=== PATIENT | female | born 1970 | race Caucasian/White ===

== ENCOUNTER → 2019-11-06 09:24 | Outpatient (BNVA) | payer OTHER, SELFPAY | PROVIDERS: Visit Provider Specialist | DX: M25.521 Pain in right elbow (principal) | CPT/HCPCS: 73080 ==

== ENCOUNTER → 2020-05-27 15:30 | Outpatient (BNVA) | payer OTHER, SELFPAY | PROVIDERS: Visit Provider Nurse Practitioner Women's Health | DX: Z01.419 Encounter for gynecological examination (general) (routine) without abnormal findings; N95.1 Menopausal and female climacteric states; Z13.0 Encounter for screening for diseases of the blood and blood-forming organs and certain disorders involving the immune mechanism; Z13.228 Encounter for screening for other metabolic disorders; Z13.1 Encounter for screening for diabetes mellitus; Z13.220 Encounter for screening for lipoid disorders | CPT/HCPCS: 88175 ==

== ENCOUNTER → 2020-06-01 09:54 | Outpatient (BNVA) | payer OTHER, SELFPAY | PROVIDERS: Visit Provider Registered Nurse | DX: N95.1 Menopausal and female climacteric states (principal); Z13.0 Encounter for screening for diseases of the blood and blood-forming organs and certain disorders involving the immune mechanism; Z13.1 Encounter for screening for diabetes mellitus; Z13.220 Encounter for screening for lipoid disorders; Z13.228 Encounter for screening for other metabolic disorders | CPT/HCPCS: 80053; 80061; 83001; 83036; 84450; 85025 ==

== ENCOUNTER → 2021-08-02 10:49 | Outpatient (BNVA) | payer OTHER, SELFPAY | PROVIDERS: Visit Provider Internal Medicine | DX: Z01.812 Encounter for preprocedural laboratory examination (principal); Z20.822 Contact with and (suspected) exposure to COVID-19 | CPT/HCPCS: 87635 ==

== ENCOUNTER 2021-08-08 07:32 | Day surgery (SDC) | payer OTHER, SELFPAY ==
[2021-08-04 15:08] VITALS: BMI 32.8
--- NOTE | 2021-08-08 07:46 | ANES.PREANE2 ---
Pre-Anesthetic Assessment Pre-Anesthetic Assessment: Height/Weight: Height 1.7 m Weight 95.254 kg Preop Diagnosis: screening Proposed Procedure: Operation Date: 08/08/21 08:45 Proposed Procedures p Colonoscopy 06344 Z12.11(Not Applicable) - Oj Griffin MD Familial anesthetic complications: none Was Beta Daniela taken within 24 hours: N/A Was Clonidine taken within 24 hours: N/A Last intake: > 8 hrs Social: Social History: No alcohol and No tobacco Exam: Pre-Anes Outpt Exam: alert, oriented x 3, clear to auscultation bilaterally and regular rate & rhythm Airway: Cervical ROM: WNL MP: 2 Dentition: Full GI: Comments: hx of ulcer Anesthetic Plan: ASA status: 1 Anesthesia: MAC Risk of > 500 ml blood loss (7ml/kg in children): No PFSH Anesthesia PFSH: Medical History History of gastric ulcer No pertinent past medical history neghx: htn,dm,thyroid,dvt/pe Surgical History H/O prior ablation treatment (~2006) treat her heavy periods H/O unilateral oophorectomy (~1989) left-- from ruptured cyst History of appendectomy (1989) History of cholecystectomy (~2000) History of tonsillectomy and adenoidectomy History of tubal ligation (~2006) Family History Mother Breast cancer dx'd around 50. Family history of thyroid problem Hypertension Hyperlipidemia Father Heart disease Hypertension Hyperlipidemia Grandmother Breast cancer Maternal grandmother--dx age 88 Grandfather Stroke Maternal grandfather Denies family history of Colon cancer Ovarian cancer Diabetes Uterine cancer Social History Smoking and tobacco status: never smoked Data Anesthesia Cardiac Studies: No Data to Display
--- NOTE | 2021-08-08 07:47 | P.HP_ITS ---
Same Day Surgery H&P Indication for Procedure/HPI DATE OF PROCEDURE: August 08, 2021 CHIEF COMPLAINT/INDICATIONFOR SURGICAL PROCEDURE: Screening PREOP DIAGNOSIS: scr PLANNED PROCEDRUE: Operation Date: 08/08/21 08:45 Proposed Procedures p Colonoscopy 78845 Z12.11(Not Applicable) - Oj Griffin MD Medications/Allergies* Allergies/Adverse Reactions Allergy/AdvReac Type Severity Reaction Status Date / Time Penicillins Allergy hives Verified 07/26/21 10:36 Pertinent History/Comorbid Conditions* Medical History (Updated 07/26/21 @ 10:56 by Oj Griffin MD) History of gastric ulcer No pertinent past medical history neghx: htn,dm,thyroid,dvt/pe Surgical History (Updated 06/04/20 @ 08:56 by Milena Holliday APN, JOSUÉ) H/O prior ablation treatment (~2006) treat her heavy periods H/O unilateral oophorectomy (~1989) left-- from ruptured cyst History of appendectomy (1989) History of cholecystectomy (~2000) History of tonsillectomy and adenoidectomy History of tubal ligation (~2006) Family History (Updated 05/31/21 @ 13:14 by Ivy Scales) Heart disease Father Hyperlipidemia Mother Father Breast cancer Mother dx'd around 50. Grandmother Maternal grandmother--dx age 88 Family history of thyroid problem Mother Hypertension Mother Father Stroke Grandfather Maternal grandfather Denies family history of Colon cancer Ovarian cancer Diabetes Uterine cancer Social History Smoking and tobacco status: never smoked Pertinent Exam Findings alert, oriented x 3, clear to auscultation bilaterally, regular rate & rhythm, operative site marked and procedure specific exam findings Recommendations Surgery/Procedure today Coding Level of Care Code Acute Bindery Machine Operator for Cherelle Hauser
[2021-08-08 08:20] VITALS: BP 120/78; PULSE 86; RESP 16; TEMP 36.1; O2SAT 97
[2021-08-08] MEDS: sodium chloride 0.9% 1,000 ML 30 ML IV (08:37)
[2021-08-08 09:46] VITALS: BP 156/96; PULSE 79; RESP 16; TEMP 36.6; O2SAT 96
[2021-08-08 10:00] VITALS: BP 133/87; PULSE 79; RESP 16; O2SAT 95
--- NOTE | 2021-08-08 13:44 | ANE.PACU2 ---
Inpatient post-anesthesia follow up: Airway intact: Yes Vital signs: Temperature 97.9 F Pulse Rate 79 Respiratory Rate 16 Blood Pressure 133/87 Pulse Oximetry 95 Oxygen Delivery Me thod Room Air Oxygen Flow Rate Fraction of Inspir ed Oxygen Hydration adequate: Yes Nausea and vomiting: No Pain level: 1 Mental status: Baseline
== END 2021-08-08 10:17 | disposition home or self-care (01) ==
PROVIDERS: Visit Provider Internal Medicine
PROC: 0DJD8ZZ Inspection of Lower Intestinal Tract, Via Natural or Artificial Opening Endoscopic (ICD-10-PCS; CPT 45378; principal; 2021-08-08 08:45)
DX: Z12.11 Encounter for screening for malignant neoplasm of colon (principal); Z87.11 Personal history of peptic ulcer disease
CPT/HCPCS: 45378; 96360; J2704; J7030

== ENCOUNTER → 2022-08-09 13:54 | Outpatient (BNVA) | payer OTHER, SELFPAY | PROVIDERS: Visit Provider Podiatrist Foot & Ankle Surgery | DX: M72.2 Plantar fascial fibromatosis (principal) | CPT/HCPCS: 73630 ==

== ENCOUNTER 2022-11-10 15:52 | Emergency (ER) | payer OTHER, SELFPAY ==
[2022-11-10 15:54] VITALS: BP 147/78; PULSE 97; RESP 16; TEMP 36.6; O2SAT 98
[2022-11-10 15:59] VITALS: PULSE 80; RESP 16; O2SAT 91
--- NOTE | 2022-11-10 16:15 | CTR_ITS ---
PROCEDURE INFORMATION: Exam: CT Lumbar Spine Without Contrast Exam date and time: 11/10/2022 5:11 PM Age: 52 years old Clinical indication: Low back pain; Additional info: Severe low back pain, L leg numbness. Lifting injury per PT. TECHNIQUE: Imaging protocol: Computed tomography of the lumbar spine without contrast. Radiation optimization: All CT scans at this facility use at least one of these dose optimization techniques: automated exposure control; mA and/or kV adjustment per patient size (includes targeted exams where dose is matched to clinical indication); or iterative reconstruction. Other protocol: This patient has received 0 known CTs and 0 known cardiac nuclear medicine studies in the 12 months prior to the current study. COMPARISON: CT kidney stone [id number] 10/05/2021 8:25 AM RADIATION DOSE METRICS: Total DLP (mGy-cm): 1305.6 FINDINGS: Bones/joints: Minimal anterolisthesis is present L3 on L4 measuring 4 mm. The alignment is otherwise near anatomic. The vertebral body heights are maintained. There are mild multilevel degenerative changes present. L3-L4 and L4-L5 diffuse disc bulging and facet arthritis causes mild spinal canal narrowing. Left paracentral focal disc protrusion at L5-S1 abuts the descending S1 nerve root. Soft tissues: Tarlov cyst in the sacrum. CT/CT lumbar spine wo con* [id number] IMPRESSION: 1. No acute findings. 2. Degenerative disc disease with mild spinal canal stenosis L3-L5. There is also disc material abutting the left descending S1 nerve root. This can be further evaluated with MRI for follow-up.
--- NOTE | 2022-11-10 16:16 | ED_ITS ---
Documented by User: KRITSEN Huff 11/10/22 16:31 HPI - Back Pain/Injury General: Chief Complaint: Back Pain/Injury Stated Complaint: back pain Time Seen by Provider: 11/10/22 16:04 Source: patient and family Mode of arrival: wheelchair Limitations: no limitations History of Present Illness: Patient is a nice 52-year-old female presents to ED today along with her presumed for complaints of severe lower back pain. Patient tells me mother was recently placed on hospice and they recently moved her to town to help care for her. Patient states she was often solo/un- assisted in transferring/lifting patient and began feeling like her back was spasming. She states yesterday she went outside on her deck and bent over to hand picker a piece of mail. She states shortly after this she began having severe lower back pain. She reports since onset she has now began experiencing pain into her left buttock and down her entire left leg. She states when she ambulates her left leg will give out causing her to fall. She denies saddle anesthesia. She is not having any bowel/bladder dysfunction. No known previous back injuries. Of note patient reports a previous history of a gastric ulcer and cannot take NSAIDs. She had been taking some leftover Hydrocodone and Flexeril at home without any relief in her discomfort. She had also been trying heating pad without relief. MD elicited complaint: back pain Onset (ago): day(s) Timing: constant Severity: severe Pain scale (0-10): 10 Similar Symptoms Previously: No Quality: sharp and spasming Location: lumbar spine and left lower back Radiation: left leg below the knee Exacerbating factors: movement, walking, coughing/sneezing and lifting Relieving factors: none Associated symptoms: Reports difficulty walking; Deny abdominal pain, chills, dysuria, fever(s) or hematuria Treatments prior to arrival: acetaminophen and prescription analgesics Work related injury: No Review of Systems Const: Denies: fever(s), chills or body aches Card: Denies: chest pain Resp: Denies: dyspnea GI: Denies: abdominal pain : Denies: flank pain, dysuria or hematuria Musc: Reports: back pain, extremity pain and muscle weakness; Denies: neck pain, extremity swelling, joint pain, joint swelling, joint redness, joint warmth, joint stiffness, muscle cramps or decrease in muscle mass Skin/Breast: Denies: rash Neuro: Reports: numbness in extremities, weakness in extremities, sensory changes and difficulty walking; Denies: headache(s), lack of coordination or dizziness PFSH ED PFSH: Medical History History of gastric ulcer No pertinent past medical history neghx: htn,dm,thyroid,dvt/pe Surgical History H/O prior ablation treatment (~2006) treat her heavy periods H/O unilateral oophorectomy (~1989) left-- from ruptured cyst History of appendectomy (1989) History of cholecystectomy (~2000) History of lithotripsy History of tonsillectomy and adenoidectomy History of tubal ligation (~2006) Family History Mother Breast cancer dx'd around 50. Family history of thyroid problem Hypertension Hyperlipidemia Father Heart disease Hypertension Hyperlipidemia Grandmother Breast cancer Maternal grandmother--dx age 88 Grandfather Stroke Maternal grandfather Denies family history of Colon cancer Ovarian cancer Diabetes Uterine cancer Social History Smoking and tobacco status: never smoked Physical Exam Const: COMMON NORMALS: patient oriented x3, no limitations and alert GENERAL APPEARANCE: in distress (pt bent over the bed in signficant discomfort) NUTRITIONAL APPEARANCE: obese ORIENTATION/CONSCIOUSNESS: Yes awake, Yes oriented to person, Yes oriented to place and Yes oriented to time HENMT: COMMON NORMALS: normocephalic and atraumatic HEAD & SCALP: normal to inspection, normocephalic and atraumatic Back/Pelvis: THORACIC SPINE/UPPER BACK: No thoracic spinal tenderness, No paraspinal muscle tenderness and No paraspinal muscle spasm LUMBAR SPINE/LOWER BACK: Yes ROM limited, Yes pain with ROM, Yes lumbar spinal tenderness, Yes paraspinal muscle tenderness and Yes straight leg raise negative bilaterally PELVIS: Yes buttock abnormal and Yes sciatic notch tenderness on the left SACROILIAC JOINTS: Yes SI joint(s) abnormal SACRUM: no tenderness COCCYX: no tenderness Extremity: COMMON NORMALS: normal to inspection, capillary refill normal, no joint enlargement, no clubbing, cyanosis or edema, no calf tenderness and no pedal edema GENERAL: Yes normal exam except as noted Neuro: COMMON NORMALS: patient oriented x3, moves all extremities, no focal motor deficits and no sensory deficits noted SENSORIUM/ORIENTATION: Yes alert, Yes oriented to person, Yes oriented to place and Yes oriented to time GAIT: Yes Unable to assess gait MOTOR EXAM: Abnormal motor strength present (most likely secondary to pain) left proximal 4 / 5 Skin: COMMON NORMALS: no rashes or lesions noted GENERAL SKIN EXAM: no rashes or lesions noted Course Vital Signs: Vital signs: Vital Signs Temperature 97.9 F 11/10/22 15:54 Pulse Rate 81 11/10/22 18:36 Respiratory Rate 16 11/10/22 18:36 Blood Pressure 147/78 11/10/22 15:54 Pulse Oximetry 96 11/10/22 18:36 Oxygen Delivery Me thod 11/10/22 15:59 MDM - Back Pain/Injury Labs Radiology Impressions Lumbar Spine CT 11/10/22 16:15 IMPRESSION: 1. No acute findings. 2. Degenerative disc disease with mild spinal canal stenosis L3-L5. There is also disc material abutting the left descending S1 nerve root. This can be further evaluated with MRI for follow-up. Discharge Plan Discharge Patient Disposition: Home Clinical Impression: Bulging lumbar disc, Acute lumbar back pain, Acute left lumbar radiculopathy Condition: Stable Prescriptions: New ketorolac 10 mg tablet 10 mg PO TID 5 Days Qty: 15 0RF methocarbamol 750 mg tablet 750 mg PO Q6H Qty: 60 0RF Medrol (David) 4 mg tablets,dose pack See Rx Instructions .ROUTE .COMPLEX Qty: 21 0RF Rx Instructions: orally per package directions Protonix 40 mg tablet,delayed release (DR/EC) 40 mg PO DAILY Qty: 30 0RF No Action citalopram 20 mg tablet 20 mg PO BEDTIME ketorolac 10 mg tablet 10 mg PO TID PRN (Reason: pain) 5 Days Qty: 15 0RF Discharge Orders: Discharge ED (Routine); Ordered 11/10/22 Ordered By: Frida Flowers Discharge Diet: Advance as tolerated and Usual diet Discharge Activity: Resume usual activity and Increase activity as tolerated Patient Instructions: Acute Low Back Pain (ED), Lumbar Radiculopathy (ED), Lower Back Exercises (ED), Opioid Safety, Pain Management Activity Restrictions/Additional Instructions: Advance activity as tolerated. Please return to the emergency department for new concerning or worsening symptoms including numbness and tingling in the genitalia, loss of bowel or bl adder control or inability to urinate or have a bowel movement, weakness in one of your legs These take your medications as prescribed Coding Level of Care Code ED Ecologist for Chg Fwd Documented by User: KETAN Mcarthur 11/11/22 00:13 HPI - Back Pain/Injury General: Chief Complaint: Back Pain/Injury Stated Complaint: back pain Time Seen by Provider: 11/10/22 16:04 [facility] ED PFSH: Medical History History of gastric ulcer No pertinent past medical history neghx: htn,dm,thyroid,dvt/pe Surgical History H/O prior ablation treatment (~2006) treat her heavy periods H/O unilateral oophorectomy (~1989) left-- from ruptured cyst History of appendectomy (1989) History of cholecystectomy (~2000) History of lithotripsy History of tonsillectomy and adenoidectomy History of tubal ligation (~2006) Family History Mother Breast cancer dx'd around 50. Family history of thyroid problem Hypertension Hyperlipidemia Father Heart disease Hypertension Hyperlipidemia Grandmother Breast cancer Maternal grandmother--dx age 88 Grandfather Stroke Maternal grandfather Denies family history of Colon cancer Ovarian cancer Diabetes Uterine cancer Social History Smoking and tobacco status: never smoked Course Vital Signs: Vital signs: Vital Signs Temperature 97.9 F 11/10/22 15:54 Pulse Rate 81 11/10/22 18:36 Respiratory Rate 16 11/10/22 18:36 Blood Pressure 147/78 11/10/22 15:54 Pulse Oximetry 96 11/10/22 18:36 Oxygen Delivery Me thod 11/10/22 15:59 MDM - Back Pain/Injury Medical Decision Making Patient is a 52-year-old female that presents to the emergency department with complaints of lumbar back pain with radicular symptoms into the left lower extremity. I assumed care at 1700. At this time patient has undergone treatment that included dexamethasone, Norflex, and morphine. She is also undergone CT imaging of her lumbar spine. Patient reports he had initial improvement of her back and lower extremity complaints after pain management was initiated. However, when she got up to transition to the table pain returned. She is resting quietly now. Patient was not initially given NSAIDs due to report of previous peptic ulcer. Patient and I discussed risks and benefits associated with NSAID use. Ultimately she elected to proceed with NSAID use. Prior to further administration I also treated her with Protonix. CT imaging reveals multilevel degenerative changes between L3 and L5. There is also disc extrusion that abuts the left descending S1 nerve root. Patient does not have saddle paresthesia, bladder/bowel dysfunction, or weakness in the left lower extremity. Patient and I had a discussion regarding diagnostics as well as her complaints. She would like referral to [facility] at [facility] in [facility]. Is likely the patient would benefit from physical therapy, SABA, as well as other possible treatment options. I have prescribed Robaxin, Medrol Dosepak, Toradol, Protonix I have advised the patient to return to the emergency department promptly if she develops saddle paresthesia, bladder or bowel dysfunction, or weakness in lower extremities. Patient is agreeable. She is answered Labs Radiology Impressions Lumbar Spine CT 11/10/22 16:15 IMPRESSION: 1. No acute findings. 2. Degenerative disc disease with mild spinal canal stenosis L3-L5. There is also disc material abutting the left descending S1 nerve root. This can be further evaluated with MRI for follow-up. Discharge Plan Discharge Patient Disposition: Home Clinical Impression: Bulging lumbar disc, Acute lumbar back pain, Acute left lumbar radiculopathy Condition: Stable Prescriptions: New ketorolac 10 mg tablet 10 mg PO TID 5 Days Qty: 15 0RF methocarbamol 750 mg tablet 750 mg PO Q6H Qty: 60 0RF Medrol (David) 4 mg tablets,dose pack See Rx Instructions .ROUTE .COMPLEX Qty: 21 0RF Rx Instructions: orally per package directions Protonix 40 mg tablet,delayed release (DR/EC) 40 mg PO DAILY Qty: 30 0RF No Action citalopram 20 mg tablet 20 mg PO BEDTIME ketorolac 10 mg tablet 10 mg PO TID PRN (Reason: pain) 5 Days Qty: 15 0RF Discharge Orders: Discharge ED (Routine); Ordered 11/10/22 Ordered By: Frida Flowers Discharge Diet: Advance as tolerated and Usual diet Discharge Activity: Resume usual activity and Increase activity as tolerated Patient Instructions: Acute Low Back Pain (ED), Lumbar Radiculopathy (ED), Lower Back Exercises (ED), Opioid Safety, Pain Management Activity Restrictions/Additional Instructions: Advance activity as tolerated. Please return to the emergency department for new concerning or worsening symptoms including numbness and tingling in the genitalia, loss of bowel or bladder control or inability to urinate or have a bowel movement, weakness in one of your legs These take your medications as prescribed Coding Level of Care Code ED Ecologist for Chg Fwd Documented by User: Tani Johnson DO 11/14/22 05:55 HPI - Back Pain/Injury General: Chief Complaint: Back Pain/Injury Stated Complaint: back pain Time Seen by Provider: 11/10/22 16:04 [facility] ED PFSH: Medical History History of gastric ulcer No pertinent past medical history neghx: htn,dm,thyroid,dvt/pe Surgical History H/O prior ablation treatment (~2006) treat her heavy periods H/O unilateral oophorectomy (~1989) left-- from ruptured cyst History of appendectomy (1989) History of cholecystectomy (~2000) History of lithotripsy History of tonsillectomy and adenoidectomy History of tubal ligation (~2006) Family History Mother Breast cancer dx'd around 50. Family history of thyroid problem Hypertension Hyperlipidemia Father Heart disease Hypertension Hyperlipidemia Grandmother Breast cancer Maternal grandmother--dx age 88 Grandfather Stroke Maternal grandfather Denies family history of Colon cancer Ovarian cancer Diabetes Uterine cancer Social History Smoking and tobacco status: never smoked Course Vital Signs: Vital signs: Vital Signs Temperature 97.9 F 11/10/22 15:54 Pulse Rate 81 11/10/22 18:36 Respiratory Rate 16 11/10/22 18:36 Blood Pressure 147/78 11/10/22 15:54 Pulse Oximetry 96 11/10/22 18:36 Oxygen Delivery Me thod 11/10/22 15:59 MDM - Back Pain/Injury Medical Decision Making Patient is a 52-year-old female that presents to the emergency department with complaints of lumbar back pain with radicular symptoms into the left lower extremity. I assumed care at 1700. At this time patient has undergone treatment that included dexamethasone, Norflex, and morphine. She is also undergone CT imaging of her lumbar spine. Patient reports he had initial improvement of her back and lower extremity complaints after pain management was initiated. However, when she got up to transition to the table pain returned. She is resting quietly now. Patient was not initially given NSAIDs due to report of previous peptic ulcer. Patient and I discussed risks and benefits associated with NSAID use. Ultimately she elected to proceed with NSAID use. Prior to further administration I also treated her with Protonix. CT imaging reveals multilevel degenerative changes between L3 and L5. There is also disc extrusion that abuts the left descending S1 nerve root. Patient does not have saddle paresthesia, bladder/bowel dysfunction, or weakness in the left lower extremity. Patient and I had a discussion regarding diagnostics as well as her complaints. She would like referral to [facility] at [facility] in [facility]. Is likely the patient would benefit from physical therapy, SABA, as well as other possible treatment options. I have prescribed Robaxin, Medrol Dosepak, Toradol, Protonix I have advised the patient to return to the emergency department promptly if she develops saddle paresthesia, bladder or bowel dysfunction, or weakness in lower extremities. Patient is agreeable. She is answered Chart reviewed and patient discussed with midlevel. Agree with assessment and plan. Labs Radiology Impressions Lumbar Spine CT 11/10/22 16:15 IMPRESSION: 1. No acute findings. 2. Degenerative disc disease with mild spinal canal stenosis L3-L5. There is also disc material abutting the left descending S1 nerve root. This can be further evaluated with MRI for follow-up. Discharge Plan Discharge Patient Disposition: Home Clinical Impression: Bulging lumbar disc, Acute lumbar back pain, Acute left lumbar radiculopathy Condition: Stable Prescriptions: New ketorolac 10 mg tablet 10 mg PO TID 5 Days Qty: 15 0RF methocarbamol 750 mg tablet 750 mg PO Q6H Qty: 60 0RF Medrol (David) 4 mg tablets,dose pack See Rx Instructions .ROUTE .COMPLEX Qty: 21 0RF Rx Instructions: orally per package directions Protonix 40 mg tablet,delayed release (DR/EC) 40 mg PO DAILY Qty: 30 0RF No Action citalopram 20 mg tablet 20 mg PO BEDTIME ketorolac 10 mg tablet 10 mg PO TID PRN (Reason: pain) 5 Days Qty: 15 0RF Discharge Orders: Discharge ED (Routine); Ordered 11/10/22 Ordered By: Frida Flowers Discharge Diet: Advance as tolerated and Usual diet Discharge Activity: Resume usual activity and Increase activity as tolerated Patient Instructions: Acute Low Back Pain (ED), Lumbar Radiculopathy (ED), Lower Back Exercises (ED), Opioid Safety, Pain Management Activity Restrictions/Additional Instructions: Advance activity as tolerated. Please return to the emergency department for new concerning or worsening symptoms including numbness and tingling in the genitalia, loss of bowel or bladder control or inability to urinate or have a bowel movement, weakness in one of your legs These take your medications as prescribed Coding Level of Care Code ED Ecologist for Cherelle Hauser
[2022-11-10 16:58] VITALS: RESP 16; O2SAT 92
[2022-11-10] MEDS: dexamethasone 10 mg/mL INJ 8 MG IV (16:58)
[2022-11-10] MEDS: morphine 4 mg/mL SDV 1 mL IVP (16:58)
[2022-11-10] MEDS: orphenadrine 30 mg/mL Inj 2 mL 60 MG IV (16:59)
[2022-11-10] MEDS: pantoprazole DR 40 mg Tablet PO (18:23)
[2022-11-10] MEDS: ketorolac 30 mg/mL INJ IVP (18:24)
[2022-11-10 18:36] VITALS: PULSE 81; RESP 16; O2SAT 96
--- NOTE | 2022-11-13 08:16 | DCPLANNER ---
Addendum entered by Patricia Tinoco 12/12/22 07:58: Patient had a follow up appointment from ortho - patient did attend appointment. Addendum entered by Patricia Tinoco 11/15/22 12:48: Patient has a follow up appointment scheduled for , November 16, 2022 at 2:00 with Salvatore Garber at [facility]. Clinic will call patient with appointment information. Addendum entered by Patricia Tinoco 11/14/22 12:51: Patient called pillowcase sewer back, stating that she would like to be referred to Dr. Golden at [facility]. manager internet retails sales sent patients information to the front office staff at [facility]. Patients information will be printed and reviewed. Clinic will call patient with appointment information. Addendum entered by Patricia Tnioco 11/13/22 15:26: Judy from [facility] called pillowcase sewer and informed pillowcase sewer that the clinic is not in network with patients insurance. manager internet retails sales called patient and informed patient of this and asked patient if she wanted to be referred to Dr. Golden at [facility] or [facility] Patient stated that she wanted to look into it some more and would call pillowcase sewer and inform pillowcase sewer who she would like to be referred to. Original Note: manager internet retails sales had message to refer [facility] at [facility] in [place]. manager internet retails sales faxed patients information to the clinic in [place]. Patients information will be reviewed. Clinic will call patient with appointment information.
== END 2022-11-10 18:40 | disposition home or self-care (01) ==
PROVIDERS: Emergency Provider Nurse Practitioner
DX: M51.16 Intervertebral disc disorders with radiculopathy, lumbar region (principal)
CPT/HCPCS: 72131; 96374; 96375; 99285; J1100; J1885; J2270; J2360

== ENCOUNTER → 2022-11-16 14:32 | Outpatient (BNVA) | payer OTHER, SELFPAY | PROVIDERS: Referring Provider Nurse Practitioner; Visit Provider Physician Assistant | DX: M54.50 Low back pain, unspecified (principal) | CPT/HCPCS: 72110 ==

== ENCOUNTER 2022-12-14 08:33 | Outpatient (CLI) | payer OTHER, SELFPAY ==
--- NOTE | 2022-12-14 08:45 | MR_ITS ---
WS: [email or web address] MRI LUMBAR SPINE NONCONTRAST TECHNIQUE: Sagittal T1, T2 and STIR imaging. Axial T1 and T2 imaging. CLINICAL INFORMATION: pain COMPARISON: CT November 10, 2022 FINDINGS: Mild lumbar curve. No acute compression. Slight anterolisthesis L3 on L4 and L4 on L5. Incidental Tar kassandra cysts in the sacrum. Disc bulging worse L5-S1. L1-L2: Mild facet arthropathy. Spinal canal and foramen are patent. L2-L3: No significant disc bulging. Mild facet arthropathy. Spinal canal and foramen are patent. L3-L4: Mild annular bulging. Moderate facet arthropathy. Spinal canal and foramen are patent. L4-L5: Mild annular bulging with slight effacement of ventral thecal sac. Mild narrowing subarticular recess bilaterally RIGHT greater than LEFT. Moderate facet arthropathy with small facet effusions. L5-S1: Tiny LEFT pericentral disc protrusion slightly contacts the LEFT S1 nerve root. Spinal canal a nd foramen are patent. Mild facet arthropathy. Visualized pelvic bony structures: Normal. Paravertebral soft tissues: Normal. MR/MR lumbar spine wo con* [id number] IMPRESSION: 1. Mild lumbar curve. No acute compression. No high-grade central canal stenos is. 2. Tiny central/LEFT pericentral protrusion L5-S1 slightly contacts the LEFT S 1 nerve root. Recommend correlation LEFT S1 nerve root symptoms. 3. Annular bulging L4-L5 with narrowing of the RIGHT greater than LEFT subarti cular recess. Recommend correlation for RIGHT L5 nerve root symptoms. 4. Moderate facet arthropathy small facet effusions L4-L5 can be seen with syn ovitis and instability. Slight anterolisthesis L4 on L5.
== END 2022-12-14 08:34 | disposition home or self-care (01) ==
LOC: RAD 08:34
PROVIDERS: Visit Provider Physician Assistant
DX: M54.16 Radiculopathy, lumbar region (principal); M51.26 Other intervertebral disc displacement, lumbar region; M47.816 Spondylosis without myelopathy or radiculopathy, lumbar region; M51.27 Other intervertebral disc displacement, lumbosacral region; M65.88 Other synovitis and tenosynovitis, other site
CPT/HCPCS: 72148

== ENCOUNTER 2023-02-23 09:42 | Outpatient (CLI) | payer OTHER, SELFPAY ==
--- NOTE | 2023-02-23 09:51 | MM_ITS ---
WS: [email or web address] SCREENING DIGITAL TOMOSYNTHESIS MAMMOGRAM WITH CAD HISTORY: Screening. COMPARISON: We have attempted to receive prior mammograms for review. The reports are available at th is time. Mammogram will be reviewed and dictated at this time. When the actual images become availabl e for review an addendum will be submitted. Reports dated 01/26/2015, 02/01/2016 and 07/18/2017 are reviewed. Bilateral CC and MLO with tomosynthesis views submitted. Synthetic mammography reviewed. Computer aid ed detection analyzed. Breast composition: There are scattered areas of fibroglandular density. No suspicious masses, microc alcifications or architectural distortion. MM/[place] [id number] IMPRESSION: BI-RADS: 1-Negative FOLLOW UP: 1 Year Follow-up
== END 2023-02-23 09:43 | disposition home or self-care (01) ==
PROVIDERS: PCP Family Medicine; Visit Provider Family Medicine
DX: Z12.31 Encounter for screening mammogram for malignant neoplasm of breast (principal)
CPT/HCPCS: 77063; 77067

== ENCOUNTER 2023-10-15 07:49 | Outpatient (CLI) | payer OTHER, SELFPAY ==
--- NOTE | 2023-10-15 07:56 | MM_ITS ---
WS: [email or web address] DIAGNOSTIC LEFT DIGITAL TOMOSYNTHESIS MAMMOGRAPHY WITH CAD. LEFT breast ultrasound, limited HISTORY: N64.9 - Disorder of breast, unspecified, redness lateral LEFT breast. No mass. COMPARISON: 02/23/2023, 10/18/2016 Technique: CC, MLO and ML views. Spot compression LEFT CC and MLO. Breast composition: There are scattered areas of fibroglandular density. No skin changes or breast ab normality noted corresponding to the area of clinical concern. LEFT breast ultrasound, negative. No mass or shadowing. IMPRESSION: MM/[place] [id number] BI-RADS: 1-Negative FOLLOW UP: 1 Year Follow-up
== END 2023-10-15 07:50 | disposition home or self-care (01) ==
LOC: RAD 07:50
PROVIDERS: PCP Family Medicine; Visit Provider Nurse Practitioner Women's Health
DX: N64.9 Disorder of breast, unspecified (principal); Z80.3 Family history of malignant neoplasm of breast; R92.322 Mammographic fibroglandular density, left breast
CPT/HCPCS: 76642; 77061; G0279

== ENCOUNTER → 2024-04-30 11:00 | Outpatient (BNVA) | payer OTHER, SELFPAY | PROVIDERS: PCP Family Medicine; Visit Provider Nurse Practitioner Women's Health | DX: K90.9 Intestinal malabsorption, unspecified (principal); Z98.84 Bariatric surgery status | CPT/HCPCS: 80053; 82306; 82310; 82607; 83550; 83970; 84425; 84446; 84590; 84597; 85025 ==

== ENCOUNTER → 2024-05-15 10:45 | Outpatient (BNVA) | payer OTHER, SELFPAY | PROVIDERS: PCP Family Medicine; Visit Provider Obstetrics & Gynecology | DX: N39.46 Mixed incontinence (principal) | CPT/HCPCS: 81000 ==

== ENCOUNTER 2024-07-01 09:07 | Outpatient (RCR) | payer OTHER, SELFPAY | END 2024-07-31 23:59 | disposition home or self-care (01) | LOC: SPT 09:07 | PROVIDERS: PCP Obstetrics & Gynecology; Visit Provider Family Medicine | DX: N39.41 Urge incontinence (principal); N81.10 Cystocele, unspecified | CPT/HCPCS: 97110; 97161; 97530 ==

== ENCOUNTER 2024-07-02 07:09 | Outpatient (CLI) | payer OTHER, SELFPAY ==
--- NOTE | 2024-07-02 07:15 | MR_ITS ---
WS: [email or web address] MRI LEFT SHOULDER NONCONTRAST TECHNIQUE: Sagittal T2, coronal T1, T2 and proton density imaging. Axial gradient PDE imaging. CLINICAL INFORMATION: 3/5 strength L shoulder with abduction, supraspinatous tear COMPARISON: None. FINDINGS: Moderate degenerative arthritis AC joint with a small amount of edema. Narrowing of the subacromial s pace. Subacromial spurring with impingement of the distal supraspinatus. Mild downsloping acromion. M ild chronic thinning of the distal supraspinatus with mild tendinopathy. Normal infraspinatus. Normal teres minor. Subscapularis tendon is intact. Biceps tendon within the bicipital groove. Moderate deg enerative narrowing of the glenohumeral articulation. Biceps labral anchor appears intact. Intra-kacey cular biceps tendon appears intact. Normal bone marrow signal in the humerus and glenoid. MR/MR shoulder LT wo con* [id number] IMPRESSION: 1. Moderate joint arthritis AC joint with mild downsloping the acromion. Subac romial spurring impinges the distal supraspinatus. 2. Mild chronic thinning of the supraspinatus with tendinopathy which appears intact. Otherwise normal rotator cuff. 3. Biceps tendon intact within the bicipital groove. Normal intra-articular bi ceps tendon. 4. Moderate degenerative narrowing of the glenohumeral articulation. 5. No other acute findings.
== END 2024-07-02 07:10 | disposition home or self-care (01) ==
PROVIDERS: PCP Obstetrics & Gynecology; Visit Provider Family Medicine
DX: M75.102 Unspecified rotator cuff tear or rupture of left shoulder, not specified as traumatic (principal); M13.812 Other specified arthritis, left shoulder; M67.814 Other specified disorders of tendon, left shoulder
CPT/HCPCS: 73221

== ENCOUNTER 2024-07-14 13:04 | Outpatient (CLI) | payer OTHER, SELFPAY ==
--- NOTE | 2024-07-14 14:00 | XR_ITS ---
WS: [email or web address] DEXA (DUAL ENERGY X-RAY ABSORPTIOMETRY) Bone mineral density was performed using a [employer] machine. HISTORY: Z78.0 - Asymptomatic menopausal state COMPARISON: None available. Lumbar spine BMD (L1-L4): 0.924 g/cm2 T score: -2.1 Z score: -1.5 Total hip BMD: Left: 0.770 g/cm2. T score: -1.9 Z score: -1.3 Right: 0.817 g/cm2. T score: -1.5 Z score: -1.0 10 year probability of a major osteoporotic fracture is 6.9%. XR/XR DEXA axial skeleton* [id number] IMPRESSION: OSTEOPENIA based upon the WHO classification for females.
== END 2024-07-14 13:05 | disposition home or self-care (01) ==
LOC: RAD 13:04
PROVIDERS: PCP Family Medicine; Visit Provider Nurse Practitioner Women's Health
DX: Z13.820 Encounter for screening for osteoporosis (principal); M85.80 Other specified disorders of bone density and structure, unspecified site; Z78.0 Asymptomatic menopausal state
CPT/HCPCS: 77080

== ENCOUNTER → 2025-05-07 11:39 | Outpatient (BNVA) | payer OTHER, SELFPAY | PROVIDERS: PCP Family Medicine; Visit Provider Nurse Practitioner Women's Health | DX: Z01.419 Encounter for gynecological examination (general) (routine) without abnormal findings (principal); N95.1 Menopausal and female climacteric states | CPT/HCPCS: 82670; 87624 ==

== ENCOUNTER → 2025-07-21 11:01 | Outpatient (BNVA) | payer OTHER, SELFPAY | PROVIDERS: PCP Family Medicine; Visit Provider Nurse Practitioner Women's Health | DX: E56.1 Deficiency of vitamin K (principal); R30.0 Dysuria | CPT/HCPCS: 82670; 85025 ==

== ENCOUNTER → 2025-08-04 13:29 | Outpatient (BNVA) | payer OTHER, SELFPAY | PROVIDERS: PCP Family Medicine; Visit Provider Nurse Practitioner Women's Health | DX: E56.1 Deficiency of vitamin K (principal) | CPT/HCPCS: 84597 ==